=== PATIENT | female | born 1940 | race Caucasian/White ===

== ENCOUNTER 2016-12-02 08:06 | Emergency (ER) | payer MEDICARE ==
[~2016-12-02] VITALS: Ht 172.7 cm; Wt 91.0 kg
[~2016-12-02 08:06] MED LIST: AZIT250T74 PO; CALA240T PO; CEFU1TAB43 PO; DUONI NEB; GLIP5 PO; KCL20 PO; LIPI10TA PO; LISI-360 PO; LISI10TA PO; LORTA5 PO; PRED20 PO; RIVA20 PO; [UNRECOGNIZED DRUG - CODE] PO; [UNRECOGNIZED DRUG - OTHER] PO
[2016-12-02 08:10] VITALS: BP 205/96; PULSE 79; RESP 16; TEMP 98; O2SAT 95
[2016-12-02] MEDS ORDERED: POTA-163 PO (08:23)
[2016-12-02] MEDS ORDERED: LIPI10TA PO (08:23)
[2016-12-02] MEDS ORDERED: AMIO200T PO (08:23)
[2016-12-02] MEDS ORDERED: LEVO25TA4 PO (08:23)
[2016-12-02] MEDS ORDERED: GABA300C5 PO (08:23)
[2016-12-02] MEDS ORDERED: GLIP5TAB8 PO (08:23)
[2016-12-02] MEDS ORDERED: LISI20TA3 PO (08:23)
[2016-12-02] MEDS ORDERED: MULTTAB67 PO (08:23)
[2016-12-02] MEDS ORDERED: ASPI-147 PO (08:23)
[2016-12-02] MEDS ORDERED: METF500T PO (08:23)
[2016-12-02] MEDS ORDERED: APRI0.372 PO (08:23)
[2016-12-02] MEDS ORDERED: LISI10TA PO (08:23)
[2016-12-02 08:38] VITALS: BP 158/78
--- NOTE | 2016-12-02 08:42 | PD ---
HPI Chief Complaint: Injury Time Seen by Provider: 08:18 Travel History International Travel<30 days: No Contact w/Intl Traveler<30days: No Traveled to known affect area: No History of Present Illness HPI This patient complains of right knee injury. Yesterday evening she was standing and turned to the side and twisted her right knee in the process. There is no fall or direct trauma to it. She developed swelling there. She has pain with weightbearing. Severity is moderate. Blood pressure is 203 systolic on arrival to the ER. She says that she took her medications about one hour ago. 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) Diabetes: Yes (NIDDM) Patient Takes Glucophage: Yes Diminished Hearing: Yes (HARD OF HEARING) Genitourinary: No Hepatitis: No Hiatal Hernia: No Hypertension: Yes Medical other: Yes (stroke [place] wears a hearing aid in the left ear) Musculoskeletal: No Neurologic: Yes Reproductive: No Respiratory: No Thyroid Disease: Yes Tetanus Vaccination: > 5 Years Influenza Vaccination: Yes ?: Not Menopausal: Yes : 3 Para: 3 Past Surgical History Eye Surgery: Yes (LEFT CATARACT EXTRACT.) Gynecologic Surgery: Yes (UTERINE SUSPENSION) Neurologic Surgery: Yes (ANEURYSM CLIPS 06/10) Pacemaker: No Other Surgery: Yes Social History Alcohol Use: No Tobacco Use: Yes (/2 PPD) Substance Use: No Allergies-Medications (Allergen,Severity, Reaction): Coded Allergies: No Known Allergies (Verified , 12/02/16) Reported Meds & Prescriptions Reported Meds & Active Scripts Active Reported Lisinopril-Hctz 20-25 Mg Tab 1 Tab PO DAILY Amiodarone (Amiodarone HCl) 200 Mg Tab 200 Mg PO DAILY Glipizide 5 Mg Tab 5 Mg PO TIDAC Take 30 minutes before a meal Lisinopril-Hctz 10-12.5 Mg Tab 1 Tab PO DAILY Levothyroxine (Levothyroxine Sodium) 25 Mcg Tab 25 Mcg PO DAILY Ecotrin Low Strength (Aspirin) 81 Mg Tabdr 81 Mg PO DAILY Lipitor (Atorvastatin Calcium) 10 Mg Tab 10 Mg PO HS Multiple Vitamin 1 Tab 1 Tab PO DAILY Apriso (Mesalamine) 0.375 Gm Caper 1.5 Gm PO DAILY Gabapentin 300 Mg Cap 300 Mg PO BID Metformin (Metformin HCl) 500 Mg Tab 500 Mg PO BIDPC With meals Potassium Chloride ER (Potassium Chloride) 20 Meq Tab 20 Meq PO BID Review of Systems General / Constitutional: No: Fever HENT: No: Headaches Cardiovascular: No: Chest Pain or Discomfort Respiratory: No: Cough Physical Exam Narrative SKIN: Focused skin assessment reveals no rash or ulcers. Skin is warm and dry. Palpation shows no induration or nodules. GASTROINTESTINAL: Abdomen soft, non-tender, nondistended. Positive bowel sounds. No hepato-splenomegaly, or palpable masses. No guarding. Right knee: Has some suprapatellar effusion. No erythema or bruising. No tenderness to the patellar or bony structures. Has decent range of motion with some discomfort when she does that. Data Data Last Documented VS Vital Signs Date Time Temp Pulse Resp B/P (MAP) Pulse Ox O2 Delivery O2 Flow Rate FiO2 12/02/16 08:10 98.0 79 16 205/96 (132) 95 Orders Orders ^ Knee Immobilizer (12/02/16 08:31) MDM Medical Decision Making Medical Screen Exam Complete: Yes Emergency Medical Condition: Yes Medical Record Reviewed: Yes Differential Diagnosis Traumatic effusion, ligament injury, cartilage tear Narrative Course I have reviewed the patient's electronic medical record. Patient has soft tissue right knee injury with traumatic effusion X-ray is not thought to be helpful here. No direct trauma to the knee. I placed her in a knee immobilizer and she will ice and elevate and limit weightbearing. She has a walker at home. Will follow-up with orthopedist Pain medicine has been written and she is warned about sedation Diagnosis Primary Impression: Soft tissue injury of right knee Qualified Codes: S89.91XA - Unspecified injury of right lower leg, initial encounter Additional Impression: Traumatic joint effusion Additional Instructions: The patient was advised to follow up with orthopedist and return if they worsen. The patient was warned about potential sedation for the medications they will receive on prescription. Ice and elevate right knee and wear immobilizer and limit weightbearing Use walker Med/Other Pt SpecificInfo: Prescription(s) given Disposition: DISCHARGE HOME Condition: Stable Price Fregoso MD Dec 02, 2016 08:42
[2016-12-02] MEDS ORDERED: TRAM50TA PO (09:01)
== END 2016-12-02 09:16 | disposition home or self-care (01) ==
LOC: PHED 08:06
DX: S89.91XA Unspecified injury of right lower leg, initial encounter (principal); X58.XXXA Exposure to other specified factors, initial encounter; E11.9 Type 2 diabetes mellitus without complications; H91.90 Unspecified hearing loss, unspecified ear; I10 Essential (primary) hypertension; Z86.73 Personal history of transient ischemic attack (TIA), and cerebral infarction without residual deficits; F17.210 Nicotine dependence, cigarettes, uncomplicated
CPT/HCPCS: 99283

== ENCOUNTER → 2017-02-14 | Outpatient (CLI) | payer MEDICARE ==
[~2017-02-14] MED LIST changes: +AMIO200T PO; +APRI0.372 PO; +ASPI-147 PO; -AZIT250T74 PO; -CALA240T PO; -CEFU1TAB43 PO; -DUONI NEB; +GABA300C5 PO; -GLIP5 PO; +GLIP5TAB8 PO; -KCL20 PO; +LEVO25TA4 PO; -LISI-360 PO; +LISI20TA3 PO; -LORTA5 PO; +METF500T PO; +MULTTAB67 PO; +POTA-163 PO; -PRED20 PO; -RIVA20 PO; +TRAM50TA PO; -[UNRECOGNIZED DRUG - CODE] PO; -[UNRECOGNIZED DRUG - OTHER] PO
[2017-02-14 08:53] LABS: BLOOD, URINE NEG (NEG); GLUCOSE,URINE NEG (NEG); KETONE, URINE NEG (NEG); NITRITE,URINE NEG (NEG)
[2017-02-14 08:56] LABS: HEMATOCRIT 44.2 % (35.0-46.0); MEAN CORPUSCULAR HGB CONC 30.7 % (32.0-36.0); PLATELET COUNT 246 TH/MM3 (150-450); RED BLOOD COUNT 5.89 MIL/MM3 (4.00-5.30); RED CELL DISTRIBUTION WIDTH 16.9 % (11.6-17.2); REVIEW FLAG FINAL; WHITE BLOOD COUNT 4.8 TH/MM3 (4.0-11.0)
[2017-02-14 09:00] LABS: CHLORIDE 101 MEQ/L (98-107); POTASSIUM 3.5 MEQ/L (3.5-5.1); SODIUM (NA) 137 MEQ/L (136-145)
[2017-02-14 09:04] LABS: ANION GAP 6 MEQ/L (5-15); BICARBONATE 29.6 MEQ/L (21.0-32.0); BLOOD UREA NITROGEN 15 MG/DL (7-18)
[2017-02-14 09:07] LABS: ALT (GPT) 23 U/L (10-53); APTT (PATIENT) 28.2 SEC (24.3-30.1); AST (GOT) 25 U/L (15-37); GLOMERULAR FILTRATION RATE 106 ML/MIN (>89); PROTHROMBIN TIME - PATIENT 10.2 SEC (9.8-11.6)
[2017-02-14 09:08] LABS: TOTAL BILIRUBIN ADULT 0.6 MG/DL (0.2-1.0)
[2017-02-14 09:10] LABS: ALKALINE PHOSPHATASE 112 U/L (45-117)
[2017-02-14 09:10] LABS: METHOD OF COLLECTION CLEAN CATCH; URINE COLOR YELLOW (YELLW/STRAW)
[2017-02-14 09:11] LABS: SQUAMOUS EPITHELIAL CELL URINE > 8 /hpf (0-5)
[2017-02-14 09:12] LABS: BACTERIA, URINE FEW /hpf; COMMENT (UR) CULTURE INDICATED; CULTURE IF INDICATED CULTURE INDICATED
--- NOTE | 2017-02-14 19:50 | EKG ---
Date Performed: 02/14/2017 Time Performed: 08:37:00 PTAGE: 76 years EKG: Sinus rhythm MARKED LEFT AXIS DEVIATION MODERATE INTRAVENTRICULAR CONDUCTION DELAY VOLTAGE CRITERIA FOR LVH NONSP ECIFIC ST & T-WAVE ABNORMALITY When compared to previous tracing, voltage criteria for left Ventricul ar hypertrophy is new. ABNORMAL ECG PREVIOUS TRACING : 12/16/2015 15.22 DOCTOR: Emre Gordon Interpretating Date/Time 02/14/2017 19:48:25
--- NOTE | 2017-02-16 16:12 | MH ---
cc: Dilip MAURICIO M.D. DATE OF ADMISSION: 02/14/2017 DATE OF SURGERY: 02/17/2017 ADMISSION DIAGNOSIS Effusion, pain and arthritis right knee now for arthroscopic debridement right knee. HISTORY OF PRESENT ILLNESS: She is 76-year female being admitted today for arthroscopic surgery right knee due to chronic pain and effusion. PAST MEDICAL HISTORY: Other past history. 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 She also has history of having joint surgery in the past. She also has a history of diabetes. CURRENT MEDICATIONS 1. Potassium chloride. 2. Metformin. 3. Gabapentin 4. Avastin 5. Ecotrin, enteric coated. 6. Levothyroxine 7. Glipizide. 8. Lisinopril REVIEW OF SYSTEMS Noncontributory. FAMILY HISTORY Noncontributory. SOCIAL HISTORY: She does smoke cigarettes, does not drink. ALLERGIES No known allergies. PHYSICAL EXAMINATION IN GENERAL: We find a 76-year female well-developed, well-nourished oriented x3 complaining of pain in her right knee. VITAL SIGNS: Blood pressure 118/72, pulse 71 and regular, respirations 16, temperature 98.1, pulse oximetry 97% on room air. HEAD, EYES, EARS, NOSE, AND THROAT: Eyes Pupils equal, round, reactive to light and accommodation, extraocular muscles intact Ears, nose, mouth clear. NECK: Supple LUNGS: Slight wheezing but otherwise clear HEART: Regular rate. ABDOMEN: Soft. Bowel sounds, nontender. EXTREMITIES: The right knee to have 2-3+ effusion. NEUROVASCULAR: Neurovascularly her toes. IMPRESSION Effusion and arthritis right knee. PLAN Admission for arthroscopic debridement right knee today. Today the patient given prescription postoperative pain control in the office understands to use Hibiclens scrub and Bactroban preoperatively. MD ES Becerra/naseem /2:44 PM /2:56 PM
== END ==
LOC: PHPRE 07:45
PROVIDERS: ATTEND Surgery
DX: Z01.810 Encounter for preprocedural cardiovascular examination (principal); M25.461 Effusion, right knee; M17.11 Unilateral primary osteoarthritis, right knee; B96.89 Other specified bacterial agents as the cause of diseases classified elsewhere; R94.31 Abnormal electrocardiogram [ECG] [EKG]; Z01.812 Encounter for preprocedural laboratory examination
CPT/HCPCS: 36415; 80053; 81001; 85027; 85610; 85730; 87086; 93005

== ENCOUNTER → 2017-02-17 | Day surgery (SDC) | payer MEDICARE ==
[~2017-02-17] VITALS: Ht 172.7 cm; Wt 97.5 kg
[~2017-02-17] MED LIST changes: +ACETAMINOPHEN/HYDROcodone 325 MG/5 MG TAB ONE; +BUPIVACAINE HCL PF 0.25% 30 ML VIAL ONE; +CHLORHEXIDINE GLUCONATE 2 % 1 PACK (2 CLOTHS) TOPICAL PRN; +CHLORHEXIDINE GLUCONATE 4% SOLN 120 ML BTL TOPICAL SCH; +DEXAMETHASONE SOD PHOS 4 MG/ML VIAL ONE; +LACTATED RINGER'S 1000 ML IV PRN; +METOPROLOL TARTRATE 25 MG TAB PO PRN; +MORPHINE SULFATE 4 MG/ML INJ ONE; +POVIDONE IODINE 5% (ANTISEPSIS KIT) 4 APPLICATIONS EACH NARE PRN; +SODIUM CHLORID 0.9% 500 ML IV PRN; +TRIAMCINOLONE ACETONIDE 40 MG/ML VIAL ONE; +ceFAZolin 2 GM PREMIX 50 ML IV SCH
[2017-02-17 09:17] VITALS: PULSE 66
[2017-02-17 10:45] VITALS: BP 132/69; PULSE 75; RESP 16; TEMP 97.9; O2SAT 90
--- NOTE | 2017-02-17 18:18 | MP ---
cc: Dilip MAURICIO DATE OF SURGERY 02/17/2017 PREOPERATIVE DIAGNOSIS Effusion and arthritis, internal derangement right knee. POSTOPERATIVE DIAGNOSIS 1. Effusion and arthritis, internal derangement right knee. 2. Torn lateral meniscus and synovitis and chondromalacia medial and lateral compartment SURGERY PERFORMED Arthroscopy, removal of fluid, sent to the lab for culture sensitivity and cytology and debridement of chondromalacia arthritis using ArthroCare system and excision of torn lateral meniscus and plica from superior medial patellofemoral joint surgeon and synovectomy. SURGEON Dilip Mauricio MD IRONER HAND Yris GOMEZ ANESTHESIA LMA PROCEDURE IN DETAIL The patient was brought to the operating room and placed on the operating room table in the supine position. After successful induction of general anesthesia, the patient's right leg was prepped and draped in the usual manner. The knee was then placed in a knee riley and tightened. Arthroscopic examination was then performed by making a stab wound over the proximal superior and medial aspect of the patellofemoral joint for insertion of the inflow cannula and fluid, followed by stab wounds over the medial and lateral joint margins respectively for insertion of the arthroscope, shaver and probe. Arthroscopic examination was then performed which revealed intact anterior cruciate, grossly intact medial compartment with some minor chondromalacia patella of the weightbearing surface of the medial femoral condyle, shaved smooth using the ArthroCare system. The lateral compartment was found to have extensive arthritis and torn lateral meniscus which was debrided using the ArthroCare system to afford a smooth surface. Hypertrophic synovium was also noted throughout the knee and debrided by doing a synovectomy. a large plica was noted in the superior medial side of the patellofemoral joint, removed using the shaver. The patellofemoral joint was otherwise found to be grossly intact. The wound was irrigated copiously with lactated Ringer's solution. Excess fluid removed. 10 mL of 0.25% Marcaine plain, 2 mL of Decadron inserted into the knee joint. Skin approximated with interrupted 3-0 nylon suture. Wet and then dry dressing applied to the wound followed by Xeroform gauze, sterile dressing and thigh-high Josue wrap. No tourniquet utilized. Estimated blood loss 5 mL. Sponge and suture count correct. The patient tolerated the procedure well and left the operating room in satisfactory condition. PATRICIA Jones nurse practitioner, was present during the entire procedure to include patient positioning and the procedure. The medical necessity of a nurse practitioner seo assistant was indicated in this case due to the surgical complexity of the case itself. During the surgical case, the manager surgical was working the back table while my surgical services tech PATRICIA was directly assisting me. J. MD ES Boyer/ /9:14 AM /6:05 PM
== END | disposition home or self-care (01) ==
LOC: PHSDC 06:03
PROVIDERS: ATTEND Surgery
DX: S83.281A Other tear of lateral meniscus, current injury, right knee, initial encounter (principal); M17.11 Unilateral primary osteoarthritis, right knee; M94.261 Chondromalacia, right knee; M65.9 Synovitis and tenosynovitis, unspecified; M25.461 Effusion, right knee; I10 Essential (primary) hypertension
CPT/HCPCS: 01400; 29881; 87015; 87070; 87102; 87116; 87205; 87206; J1100; J2270; J7120; J3301